=== PATIENT | male | born 1985 | race Caucasian/White ===

== ENCOUNTER 2019-12-31 08:51 | Inpatient (IN) | payer OTHER ==
[2019-12-31] VITALS (9 sets, daily range): BP systolic 112–123; BP diastolic 61–82
[~2019-12-31] VITALS: Ht 187.9 cm; Wt 131.1 kg
--- NOTE | 2019-12-31 09:01 | NUR ---
PT POX 86% RA, 4L NC APPLIED POX 92% , WILL MONITOR.
[2019-12-31 09:35] LABS: BASO % 0.2 % (0.0-1.0); EOS % 0.2 % (1.0-4.0); HEMATOCRIT 41.2 % (42.0-52.0); LYMPH % 5.3 % (27.0-41.0); MEAN CORPUSCULAR HGB 30.4 pg (27.0-31.0); MEAN PLATELET VOLUME 9.5 fl (9.6-12.3); MONO # 0.9 10*3/uL (0.1-1.0); MONO % 4.4 % (3.0-9.0); NEUT # 17.5 10*3/uL (2.3-7.9); NEUT % 89.4 % (47.0-73.0); PLATELET COUNT AUTOMATED 311 10*3/uL (130-400); RED BLOOD COUNT 4.48 10*6/uL (4.50-5.90); WHITE BLOOD COUNT 19.5 10*3/uL (4.8-10.8)
[2019-12-31 09:50] LABS: ALBUMIN 3.3 gm/dl (3.1-4.5); ALKALINE PHOSPHATASE 59 U/L (45-117); BUN 19 mg/dl (7-24); CHLORIDE 104 mmol/L (98-107); CREATININE 1.12 mg/dL (0.70-1.30); POTASSIUM 4.2 mmol/L (3.5-5.1); SGOT/AST 41 IU/L (3-35); SGPT/ALT 81 U/L (12-78); SODIUM 136 mmol/L (136-145); TOTAL PROTEIN 7.7 gm/dL (6.4-8.2)
--- NOTE | 2019-12-31 10:32 | NUR ---
pt resting awake and orineted, pox 94% 4L. will continue to monitor.
--- NOTE | 2019-12-31 10:54 | NUR ---
REPIRATIONS EASY, NO ACUTE DISTRESS NOTED, PT DENIES SOB. POX 88% 4L, O2 INCREASED TO 6L, POX 93%, WILL CONTINUE TO MONITOR. HR 118.
--- NOTE | 2019-12-31 11:56 | NUR ---
PT POX 98% 6L, PT TITRATED TO 4L, POX 95% , WILL MONITOR.
--- NOTE | 2019-12-31 15:01 | NUR ---
A 34, admitted to , under the services of LO Olson DO with a diagnosis of OVERDOSE. Chief complaint is BROUGHT IN AFTER OVERDOSE. Patient arrived via WHEELCHAIR from ER. Monitor applied. Initial assessment completed. Vital signs taken and recorded. LO OLSON DO notified of admission to the unit. Orders received. See assessment for past medical history, medications and allergies. Patient and/or family oriented to unit. [facility] visitation policy reviewed. BLOSSOM ADEN
[2019-12-31 16:19] LABS: ABG BASE EXCESS 0.3 mmol/L (-2.0-2.0); ARTERIAL BLOOD GAS PH 7.447 (7.35-7.45)
--- NOTE | 2019-12-31 17:08 | NUR ---
NOTIFIED OF ABGS, SOFA SORE OF 3, PF RATIO OF [phone]. PER SUPPLEMENTAL OXYGEN. PT ON 2L NC
--- NOTE | 2019-12-31 21:00 | NUR ---
PATIENT VOICED NO COMPLAINTS AT THIS TIME. RESTING QUIETLY IN BED. POC DISCUSSED WITH PATIENT AND MEDICATIONS THAT WILL BE GIVEN. CALL LIGHT LEFT WITHIN REACH.
[2019-12-31 22:30] LABS: URINE AMPHETAMINES < 1000 (1000ng/ml); URINE BARBITURATES < 200 (200ng/ml); URINE BENZODIAZEPINES < 200 (200ng/ml); URINE CANNABINOIDS (THC) < 50 (50ng/ml); URINE COCAINE < 300 (300ng/ml); URINE METHADONE < 300 (300ng/ml); URINE OPIATES > 300 (300ng/ml); URINE PHENCYCLIDINE < 25 (25ng/ml)
[2020-01-01] VITALS: BP 117/63
[2020-01-01 06:33] LABS: BASO % 0.3 % (0.0-1.0); EOS # 0.3 10*3/uL (0.0-0.4); EOS % 2.6 % (1.0-4.0); HEMATOCRIT 38.5 % (42.0-52.0); LYMPH # 1.9 10*3/uL (1.3-4.4); LYMPH % 15.7 % (27.0-41.0); MEAN CORPUSCULAR HGB 30.3 pg (27.0-31.0); MEAN CORPUSCULAR HGB CONC 33.2 g/dl (33.0-37.0); MEAN PLATELET VOLUME 9.7 fl (9.6-12.3); MONO # 0.8 10*3/uL (0.1-1.0); MONO % 6.7 % (3.0-9.0); NEUT # 8.7 10*3/uL (2.3-7.9); NEUT % 74.3 % (47.0-73.0); PLATELET COUNT AUTOMATED 247 10*3/uL (130-400); RED BLOOD COUNT 4.23 10*6/uL (4.50-5.90); WHITE BLOOD COUNT 11.8 10*3/uL (4.8-10.8)
[2020-01-01 06:48] LABS: ALKALINE PHOSPHATASE 51 U/L (45-117); BUN 16 mg/dl (7-24); CHLORIDE 106 mmol/L (98-107); CHOLESTEROL 161 mg/dL (<200); CREATININE 0.82 mg/dL (0.70-1.30); PHOSPHOROUS 1.9 mg/dL (2.5-4.9); POTASSIUM 3.5 mmol/L (3.5-5.1); SGOT/AST 27 IU/L (3-35); SGPT/ALT 62 U/L (12-78); SODIUM 137 mmol/L (136-145); TOTAL PROTEIN 7.4 gm/dL (6.4-8.2); TRIGLYCERIDES 100 mg/dl (<150); VLDL CHOLESTEROL 20 mg/dL (6-40)
[2020-01-01 06:49] LABS: HDL CHOLESTEROL 44 mg/dl (40-60); LDL CHOLESTEROL 97 mg/dL (9-159)
[2020-01-01 08:00] VITALS: BP 126/74
[2020-01-01 12:00] VITALS: BP 118/54
[2020-01-01 16:00] VITALS: BP 110/70
[2020-01-01 20:00] VITALS: BP 122/62
--- NOTE | 2020-01-01 20:00 | NUR ---
AGUEDA VOICED NO COMPLAINTS. NO OVERT DISTRESS NOTED, SPO2 REMAINING WNL ON ROOM AIR. BED ISL OCKED IN LOWEST POSITION. CALL LIGHT WITHIN REACH
[2020-01-02] VITALS: BP 122/78
--- NOTE | 2020-01-02 02:00 | NUR ---
PATIENT ASLEEP, EYES CLOSED. NO DISTRESS NOTED. CALL LIGHT WITHI NREACH
[2020-01-02 08:00] VITALS: BP 128/69
--- NOTE | 2020-01-02 08:46 | NUR ---
PHYSICAL THERAPY Nursing screen received and chart reviewed. Patient is currently admitted to the fifth floor to monitor for COVID19. Per discussion with the nursing logging crew supervisor, please defer PT/therapy intervention due to monitoring for COVID19. If decline in mobility status presents, please send PT orders when patient is medically stable and removed from COVID19 precautions. Thank you. Abby Block,PT,DPT
--- NOTE | 2020-01-02 09:18 | NUR ---
SPEECH PATHOLOGY Nursing screen completed. Patient is currently admitted to the COVID unit. If swallowing issues are suspected, this dept. will be available for consult once he is removed from COVID precautions. ÉPREZ MORIN [facility]
[2020-01-02 12:00] VITALS: BP 127/72
--- NOTE | 2020-01-02 12:43 | NUR ---
Extension Service Specialist In Charge in to talk to patient. Patient states lives at HOME with PARENTS. There are FEW steps in the home. Physician: NONE [facility]acy: [facility] Home health services: NONE Patient's level of ADLs: INDEPENDENT Patient has working utilities: YES DME: NONE Follow-up physician's appointment after d/c: WILL FIND ONE AND MAKE APPOINTMENT ON DISCHARGE Does patient want to access PORTAL?: NO Discharge plan PT LIVES AT HOME WITH HIS PARENTS AND IS INDEPENDENT IN HIS CARE. DENIES HE WILL HAVE NEEDS ON DISCHARGED. PLANS TO RETURN HOME WITH HIS PARENTS WHEN MEDICALLY STABLE. STATES HE WILL HAVE A RIDE HOME. VANESSA WRIGHT
[2020-01-02] MEDS ORDERED: DOXYCYCLINE100 M3 PO ×2 (14:19→15:08)
--- NOTE | 2020-01-02 17:14 | NUR ---
Discharge instructions reviewed with patient/family. Patient receptive and verbalizes understanding. Follow-up care arranged. Written instructions given to patient/family. [place] DISCONTINUED. NOTIFIED THAT PATIENT WANTS SCRIPT SENT TO HIS [facility]. PT EDUCATED ON SELF-QUARANTINE. AMBULATORY OFF FLOOR WITH MASK IN PLACE & D/C THROUGH DENA NORWOOD
== END 2020-01-02 17:15 | disposition home or self-care (01) | DRG 812 ==
LOC: ED 08:51 → EDHOLD 13:33 → 5E 13:33
PROVIDERS: Emergency Medicine; Internal Medicine Critical Care Medicine; Student in an Organized Health Care Education/Training Program; ADMIT Internal Medicine
DX: T40.601A Poisoning by unspecified narcotics, accidental (unintentional), initial encounter (principal); J96.01 Acute respiratory failure with hypoxia; J69.0 Pneumonitis due to inhalation of food and vomit; E44.0 Moderate protein-calorie malnutrition; G93.41 Metabolic encephalopathy; Z20.828 Contact with and (suspected) exposure to other viral communicable diseases; D64.9 Anemia, unspecified; E83.41 Hypermagnesemia; R73.9 Hyperglycemia, unspecified; E83.39 Other disorders of phosphorus metabolism; E66.9 Obesity, unspecified; Y92.89 Other specified places as the place of occurrence of the external cause; Z72.0 Tobacco use; Z68.33 Body mass index [BMI] 33.0-33.9, adult